=== PATIENT | female | born 1960 | race Caucasian/White ===

== ENCOUNTER → 2022-03-25 | Outpatient (CLI) | payer BC ==
[2022-03-25 18:05] LABS: HCT 45.1 % (37.2-46.3); HGB 13.8 g/dL (12.0-15.0); MCH 30.7 pg (27.0-32.0); MCHC 30.6 g/dL (32.0-37.0); MCV 100.2 fL (80.0-97.0); Mean Platelet Volume 9.7 fL (9.5-12.2); NRBC Per 100 WBC 0 /100 WBCS (0.0-0.0); Platelet Count 387 X 10*3/uL (140-440); WBC 11.67 X 10*3/uL (4.50-10.00)
[2022-03-25 18:22] LABS: African American GFR (CKD) 109.9 (60.0-200.0); Albumin 4.5 g/dL (3.8-4.9); Albumin/Globulin Ratio 1.41 (1.60-3.17); BUN/Creat Ratio 14.86 Ratio (12.00-20.00); Blood Urea Nitrogen 10.4 mg/dL (9.0-27.0); Globulin 3.2 g/dL (1.6-3.3); Non-African American GFR(CKD) 94.8 (60.0-200.0); Potassium 4.4 mmol/L (3.5-5.5); Total Bilirubin 0.3 mg/dL (0.30-1.20); Total Protein 7.7 g/dL (6.2-8.2)
[2022-03-25 20:02] LABS: Appearance,Urine Clear (Clear); Bilirubin,Urine Negative (Negative); Blood,Urine Negative (Negative); Color,Urine Yellow (Yellow); Ketones,Urine Negative (Negative); Nitrite,Urine Negative (Negative); PH, Urine 7.5 (5.0-8.0); Specific Gravity,Urine 1.005 (1.001-1.030); Urobilinogen,Urine 0.2 (0.2,1.0)
[2022-03-25 20:11] LABS: Bacteria,Urine None Seen /HPF (None Seen)
== END | disposition home or self-care (01) ==
LOC: LABPAT 12:50
PROVIDERS: ATTEND Orthopaedic Surgery
DX: Z01.818 Encounter for other preprocedural examination (principal); R94.31 Abnormal electrocardiogram [ECG] [EKG]
CPT/HCPCS: 80053; 81001; 85027; 87070; 93005

== ENCOUNTER 2022-04-01 07:28 | Day surgery (SDC) | payer BC ==
[~2022-04-01 07:28] MED LIST: ACETAMINOPHEN TAB 500 MG TAB PO PRN; GABAPENTIN 300 MG CAP PO PRN; MELOXICAM 7.5 MG TAB PO PRN; TRANEXAMIC ACID IN NACL,ISO-OS 1,000 MG in SALINE 1 100ML.BAG IVPB PRN
[2022-04-01] MEDS ORDERED: SCOPOLAMINE 1 MG/72 HR PATCH TRANSDERM ONE (07:44)
[2022-04-01] MEDS ORDERED: MIDAZOLAM 2 MG/2 ML VIAL IV PRN (07:44)
[2022-04-01] MEDS ORDERED: HYDROmorphone 0.5 MG/0.5 ML SYRINGE IVP PRN ×3 (07:44→09:32)
[2022-04-01] MEDS ORDERED: DEXAMETHASONE SOD PHOSPHATE 4 MG/ML 1 ML VIAL IV ONE (07:44)
[2022-04-01] MEDS ORDERED: ONDANSETRON 4 MG/2 ML VIAL IVP ONE (07:44)
[2022-04-01] MEDS: LACTATED RINGERS 1,000 ML IV SCH (08:25)
[2022-04-01] MEDS ORDERED: diphenhydrAMINE 50 MG/ML 1 ML VIAL ONE ×2 (08:38→09:39)
[2022-04-01] MEDS ORDERED: HYDROmorphone 1 MG/ML 1 ML SYRINGE IVP PRN (09:32)
[2022-04-01] MEDS ORDERED: hydrOXYzine pamoate 25 MG CAP PO PRN (09:32)
[2022-04-01] MEDS ORDERED: MAGNESIUM HYDROXIDE 2,400 MG/10 ML CUP PO PRN (09:32)
[2022-04-01] MEDS ORDERED: ONDANSETRON 4 MG/2 ML VIAL IVP PRN (09:32)
[2022-04-01] MEDS ORDERED: NALOXONE 0.4 MG/ML 1 ML VIAL IV PRN (09:32)
[2022-04-01] MEDS ORDERED: HYDROcodone/APAP 7.5-325MG 1 EACH TAB PO PRN (09:36)
[2022-04-01] MEDS ORDERED: MIDAZOLAM 2 MG/2 ML VIAL ONE (09:39)
[2022-04-01] MEDS ORDERED: KETAMINE 10 MG/ML 20 ML VIAL ONE (09:39)
[2022-04-01] MEDS ORDERED: PHENYLEPHRINE-0.9% NACL SYG 1,000 MCG/10 ML SYRINGE ONE (09:39)
[2022-04-01] MEDS ORDERED: PROPOFOL 10 MG/ML 20 ML VIAL IV ONE (09:39)
[2022-04-01] MEDS ORDERED: methylPREDNISolone SOD SUCCI 125 MG/2 ML VIAL ONE (09:39)
[2022-04-01] MEDS ORDERED: fentaNYL (PF) 50 MCG/ML 2 ML AMP ONE (09:39)
[2022-04-01] MEDS ORDERED: ROPIVACAINE 5 MG/ML 30 ML VIAL MISCELLANE ONE ×2 (09:40→10:37)
[2022-04-01] MEDS ORDERED: ceFAZolin 1,000 MG in SODIUM CHLORIDE 0.9% 1,000 ML IRRIGATION ONE (09:41)
--- NOTE | 2022-04-01 10:45 | P.OP ---
Date of Procedure: 04/01/22 Preoperative Diagnosis: Severe osteoarthritis right hip Postoperative Diagnosis: Severe osteoarthritis right hip Procedure(s) Performed: A total hip arthroplasty with a direct anterior approach Implants: [employer] Polarstem standard size 4 with a collar [employer] R3, 3 hole hemispherical acetabular shell, 48 mm [employer] Reflection 6.5 mm cancellus screw, 20 mm 2 [employer] R3, XLPE 20 acetabular liner [employer] Oxinium femoral head 32 m, -3 All components were press-fit. The articulation is Oxinium on polyethylene. Anesthesia: spinal Surgeon: Maximilian Luis Geropsychologist #1: Ирина Rodriguez Estimated Blood Loss (ml): 450 Pathology: other (Femoral head) Condition: stable Disposition: PACU Indications for Procedure: After failure of conservative treatment we discussed the surgical and nonsurgical treatment options at length. Patient wishes to proceed with a total hip arthroplasty with a direct anterior approach. Complications specific to this procedure were discussed at length, including but not limited to infection, leg length discrepancy, dislocation, nerve injury, and fracture. Covid-19 was also discussed at length with the patient, and they are aware of the current policies and procedures. The patient was given the option of delaying surgery, but they elect to proceed knowing these risks. Patient is aware of all these complications and informed consent was obtained Operative Findings: The operative findings are consistent with severe osteoarthritis of the right hip Description of Procedure: Patient was seen and evaluated in the preoperative area and the consent was reviewed. The operative site was marked with a skin marker. The patient was then brought to the operating room and given preoperative antibiotics intravenously. 1 g of Tranexamic acid was also given intravenously. A spinal anesthetic was administered by the anesthesia department. The patient was then placed on the Jefferson table with the bony prominences well-padded. The hip area was then prepped with a ChloraPrep solution and draped in the usual sterile fashion. A universal timeout was then performed, which confirmed the patient's name, surgical site, ALLERGIES, and procedure being performed on the consent. Next the incision site was located at 1 cm distal and 2 cm lateral to the anterior superior iliac spine. The skin and subcutaneous tissues were sharply incised. Incision was carefully dissected down to the fascia overlying the tensor fascia zaid muscle. This fascia was then incised in line with the incision. Care was taken to stay laterally in order to avoid injuring the lateral femoral cutaneous nerve. Next, using blunt finger dissection, the tensor fascia zaid muscle was dissected off its investing fascia. The muscle was then carefully retracted laterally with a cobra retractor over the lateral neck of the femur. Next, the circumflex vessels were identified and cauterized using the AquaMantis device. The anterior hip capsule was then exposed. The capsule was then opened and an inverted T fashion. Cobra retractors were then placed intracapsularly. The retractors were maintained intracapsular throughout the procedure. The proximal femur was then visualized. Fluoroscopic x-rays were then taken in order to evaluate the preoperative leg lengths. A small amount of traction was placed on the leg. The femoral neck was then osteotomized at the appropriate level above the lesser trochanter. A small wedge of bone was then removed from the remaining femoral head. Next, using a corkscrew the femoral head was removed from the acetabulum. On gross visual inspection, the femoral head had complete loss of articular cartilage and multiple periarticular osteophytes. The femoral head was then measured. Attention was then turned to the acetabulum. The acetabulum was exposed and any remaining labrum was excised. Sequential reaming of the acetabulum was performed using fluoroscopic guidance until there was a good bed of bleeding cancellus bone. When the appropriate size was reached, a trial was then placed. The position and fit of the trial was checked with fluoroscopy. The trial was then removed. Then, using fluoroscopic guidance, the final implant was impacted at 20 of anteversion and 40 of abduction, and fully seated in the acetabulum. 2 screws were then placed in the acetabulum. Again fluoroscopy was used to check position of the screws. Next, the liner was then impacted, with a 20 elevated liner located in the anterior superior quadrant. Component locking was confirmed. Attention was then directed to the femur. With the aid of the Jefferson table, the femur was externally rotated to approximately 130, extended, and adducted under the opposite leg. A side hook was then placed under the proximal femur, and the side hook elevator was used to elevate the proximal femur while releasing the capsule. Retractors were then placed. A capsular release was performed, as well as a release of the conjoined tendon, which afforded excellent visualization of the proximal femur. Next, a box osteotome was used to lateralize the proximal femur. A merchandiser retail representative was then used to locate the femoral canal. Sequential broaching was then performed with appropriate size which afforded excellent fixation in the proximal femur. A trial was then placed with appropriate head and neck, and the hip was gently reduced with the aid of the Jefferson table. Fluoroscopy was then used to check position of the components, as well as to evaluate the leg lengths and offset. The leg lengths and offset were measured as closely as possible to ensure stability of the hip. The hip was then gently dislocated and the trials were then removed. Final implants were then impacted and the hip was again reduced. Final fluoroscopic x-rays confirmed that the components were in anatomic position. The leg lengths and offset were measured and were found to coincide with the trial measurements. The hip was also taken through range of motion, and found to be stable. The hip was then copiously irrigated with antibiotic solution with pulsatile lavage. The hip was then irrigated with Irrisept solution. The soft tissues were then injected with a ropivacaine solution. A second dose of 1 g of Tranexamic acid was also given intravenously. The fascia was then closed with 2-0 strata fix suture. The subcutaneous tissue was closed with 3-0 Vicryl. The subcuticular tissue was closed with 3-0 strata fix suture. The skin was then closed with Exofin skin glue. After the glue and dried, and Optifoam silver impregnated dressing was applied. The patient was then transferred to the recovery room in stable condition. The human services assistant JOSSELYN Betancourt was required due to the complexity of surgery, and the need for skilled salesperson surgical appliances for positioning, draping, exposure, retraction, and closure of the wound.
[2022-04-01] MEDS ORDERED: LACTATED RINGERS 1,000 ML IV ONE (10:50)
--- NOTE | 2022-04-01 10:53 | XR ---
EXAMINATION TYPE: XR Hip Limited RT DATE OF EXAM: 04/01/2022 COMPARISON: NONE HISTORY: Postop TECHNIQUE: One view submitted. FINDINGS: There is postsurgical change in near anatomic alignment. There is soft tissue edema and emphysema. IMPRESSION: 1. Postoperative change. Appears in near-anatomic alignment.
--- NOTE | 2022-04-01 10:54 | FL ---
EXAMINATION TYPE: FL guidance operating room DATE OF EXAM: 04/01/2022 HISTORY: Fluoroscopy time 49 seconds of fluoroscopy provided. IMPRESSION: 1. Fluoroscopy time.
[2022-04-01] MEDS ORDERED: ALBUTEROL HFA INHALER INHALATION PRN (14:36)
--- NOTE | 2022-04-01 14:39 | P.CONS ---
History of Present Illness - Reason for Consult Consult date: 04/01/22 med management - History of Present Illness Patient is a 61-year-old female with history of hypothyroidism, asthma/COPD, osteoarthritis presenting for elective right hip total arthroplasty. [facility] physicians has been consulted for medical management. She currently denies any chest pain, shortness of breath, abdominal pain, urinary or bowel complaints. Patient seen and examined at bedside. Pertinent positives and negatives as discussed in HPI, a complete review of systems was performed and all other systems are negative. Vital signs reviewed General: nontoxic, no distress, appears at stated age Derm: warm, dry Head: atraumatic, normocephalic, symmetric Eyes: EOMI, no lid lag, anicteric sclera, pupils equal round reactive to light ENT: Nose and ears atraumatic Neck: No thyromegaly, supple Mouth: no lip lesion, mucus membranes moist Cardiovascular: S1S2 reg, no murmur, no edema Lungs: clear to auscultation bilateral, no rhonchi, no rales, no wheeze, no accessory muscle use, on 2 L nasal cannula Abdominal: soft, nontender to palpation, no guarding, no appreciable organomegaly Ext: no gross muscle atrophy, muscle strength muscle strength 5 out of 5 in all 4 extremities, no contractures Neuro: CN II-XII grossly intact Psych: Alert, oriented, appropriate affect Assessment/Plan: Severe right hip osteoarthritis Status post total right hip arthroplasty DVT prophylaxis and pain management per surgery PT/OT Chronic medical problems: COPD/asthma Hypothyroidism -Currently on 2 L postop, continue to wean -Continue home therapy Thank you for allowing us to participate in the care of this pleasant patient. Do not hesitate to contact us with questions. Someone can be reached from the [facility] hospitalist group all hours of the day at [phone] or via [employer]. Past Medical History Past Medical History: Asthma, Osteoarthritis (OA), Thyroid Disorder Additional Past Medical History / Comment(s): migraines, History of Any Multi-Drug Resistant Organisms: None Reported Past Surgical History: Cholecystectomy Additional Past Surgical History / Comment(s): partial thyroidectomy kidney stone basketing, Past Anesthesia/Blood Transfusion Reactions: Previous Problems w/ Anesthesia Smoking Status: Never smoker - Past Family History Mother Family Medical History: Coronary Artery Disease (CAD), Pneumonia Additional Family Medical History / Comment(s): pace maker in Father Family Medical History: Congestive Heart Failure (CHF), Thyroid Disorder Medications and Allergies Home Medications Medication Instructions Recorded Confirmed Type Albuterol Inhaler [Ventolin Hfa 1 - 2 puff INHALATION Q6H PRN 03/26/22 03/26/22 History Inhaler] FLUoxetine HCL 20 mg PO DAILY 03/26/22 03/26/22 History Ibuprofen 800 mg PO Q8H 03/26/22 03/26/22 History Levothyroxine Sodium 100 mcg PO DAILY 03/26/22 03/26/22 History Loratadine 10 mg PO DAILY 03/26/22 03/26/22 History Mometasone/Formoterol [Dulera 200 1 puff INHALATION DAILY 03/26/22 03/26/22 History Mcg-5 Mcg Inhaler] Montelukast [Singulair] 10 mg PO HS 03/26/22 03/26/22 History Multivitamins, Thera [Multivitamin 1 tab PO DAILY 03/26/22 03/26/22 History (formulary)] Omeprazole 20 mg PO DAILY 03/26/22 03/26/22 History SUMAtriptan succinate 50 mg PO DAILY PRN 03/26/22 03/26/22 History Vit C/Ascorb Sod/Multivit-Min 500 mg PO DAILY 03/26/22 03/26/22 History [Emergen-C 500 mg Chewable Tab] Aspirin 325 mg PO BID #60 tab 04/01/22 Rx HYDROcodone/APAP 7.5-325MG [[place] 1 - 2 tab PO Q6H PRN #32 tab 04/01/22 Rx 7.5-325] Sennosides [Senokot] 2 tab PO DAILY PRN #60 tablet 04/01/22 Rx Allergies Allergy/AdvReac Type Severity Reaction Status Date / Time Iodinated Contrast Media Allergy Rash/Hives Verified 04/01/22 07:52 ketorolac [From Toradol] Allergy Anaphylaxis Verified 04/01/22 07:52 latex Allergy Rash/Hives Verified 04/01/22 07:52 Penicillins Allergy Anaphylaxis Verified 04/01/22 07:52 povidone-iodine Allergy Rash/Hives Verified 04/01/22 07:52 [From Betadine] Physical Exam Vitals: Vital Signs Temp Pulse Resp BP Pulse Ox 04/01/22 12:13 91 16 118/62 100 04/01/22 11:45 87 16 119/67 98 04/01/22 11:30 88 16 118/67 99 04/01/22 11:18 89 16 104/57 99 04/01/22 11:04 89 16 98/54 95 04/01/22 08:25 97.1 F L 97 16 153/87 97 Intake and Output 03/31/22 04/01/22 04/01/22 22:59 06:59 14:59 Intake Total 1151 Output Total 450 Balance 701 Intake: IV 1151 Output: Estimated Blood Loss 450 Other: Weight 83.5 kg
[2022-04-01] MEDS: HYDROcodone/APAP 7.5-325MG 1 EACH TAB PO PRN ×2 (15:09→20:41)
[2022-04-01] MEDS: SODIUM CHLORIDE 0.9% 1,000 ML IV SCH (16:25)
[2022-04-01 17:55] VITALS: RESP 17
[2022-04-01] MEDS: ASPIRIN 325 MG TAB PO SCH (20:41)
[2022-04-01] MEDS ORDERED: SENNOSIDES-DOCUSATE SODIUM 1 EACH TAB PO SCH (21:00)
[2022-04-01] MEDS ORDERED: MONTELUKAST 10 MG TAB PO SCH (21:00)
[2022-04-02] MEDS: SODIUM CHLORIDE 0.9% 1,000 ML IV SCH (00:38)
[2022-04-02 02:15] VITALS: BP 110/65; PULSE 95; TEMP 97.7
[2022-04-02] MEDS: HYDROcodone/APAP 7.5-325MG 1 EACH TAB PO PRN ×2 (05:52→11:02)
[2022-04-02] MEDS ORDERED: LEVOTHYROXINE 100 MCG TAB PO SCH (06:30)
[2022-04-02] MEDS ORDERED: PANTOPRAZOLE 40 MG TABLET PO SCH (07:30)
[2022-04-02] MEDS ORDERED: SYMBICORT 160-4.5 MCG INHALER INHALATION SCH (08:00)
[2022-04-02 09:00] LABS: HCT 34.6 % (37.2-46.3); HGB 11.3 g/dL (12.0-15.0); MCH 31.5 pg (27.0-32.0); MCHC 32.7 g/dL (32.0-37.0); MCV 96.4 fL (80.0-97.0); Mean Platelet Volume 9.1 fL (9.5-12.2); NRBC Per 100 WBC 0 /100 WBCS (0.0-0.0); Platelet Count 378 X 10*3/uL (140-440); RBC 3.59 X 10*6/uL (4.10-5.20); RDW 13.2 % (11.5-14.5); WBC 22.99 X 10*3/uL (4.50-10.00)
[2022-04-02] MEDS ORDERED: VIT C PO SCH (09:00)
[2022-04-02] MEDS ORDERED: MULTIVITAMINS, THERA 1 EACH TAB PO SCH (09:00)
[2022-04-02] MEDS ORDERED: FLUoxetine HCL 20 MG CAP PO SCH (09:00)
[2022-04-02] MEDS ORDERED: LORATADINE 10 MG TAB PO SCH (09:00)
[2022-04-02] MEDS ORDERED: ASCORB SOD PO SCH (09:00)
[2022-04-02] MEDS ORDERED: MULTIVIT MIN PO SCH (09:00)
[2022-04-02] MEDS ORDERED: [UNRECOGNIZED DRUG - OTHER] PO SCH (09:00)
[2022-04-02] MEDS: ASPIRIN 325 MG TAB PO SCH (09:04)
[2022-04-02] MEDS: LACTATED RINGERS 1,000 ML IV SCH (09:05)
--- NOTE | 2022-04-02 09:52 | P.DS ---
Providers Expected date of discharge: 04/02/22 Attending physician: Maximilian Luis Consults: 04/01/22 09:32 Consult Physician Routine Consulting Provider: Kateryna James Consult Reason/Comments: medical management Do you want consulting provider notified?: Yes Primary care physician: Physician Nonstaff - Discharge Diagnosis(es) (1) Osteoarthritis of right hip Current Visit: Yes Status: Acute (2) S/P total hip arthroplasty Current Visit: Yes Status: Acute Hospital Course: This is a 61-year-old female with known history of degenerative arthritis of the right hip. The patient presented for evaluation as an outpatient. After discussion and consideration patient elects to proceed with total hip arthroplasty. The patient is seen preoperatively by Dr. Luis and medically cleared for surgery by their primary care physician. Patient is admitted to [facility] on 04/01/2022 for total hip arthroplasty. The procedure is performed without complication or sequelae. The patient is doing well postoperatively. Labs and vital signs are stable on day of discharge. On day of discharge patient's hip incision is healing well. There is minimal erythema. There is no drainage noted at this time. There is minimal soft tissue swelling to the hip and thigh. Patient has full foot and ankle motion without difficulty or pain. Calf is soft and nontender to palpation. Neurovascular status to the right lower extremity is intact. Patient is discharged home in good condition. Please see med rec for accurate list of home medications. Plan - Discharge Summary Discharge Rx Participant: Yes New Discharge Prescriptions: New HYDROcodone/APAP 7.5-325MG [[place] 7.5-325] 1 - 2 tab PO Q6H PRN #32 tab PRN Reason: Pain Sennosides [Senokot] 2 tab PO DAILY PRN #60 tablet PRN Reason: Constipation Aspirin 325 mg PO BID #60 tab No Action Albuterol Inhaler [Ventolin Hfa Inhaler] 1 - 2 puff INHALATION Q6H PRN PRN Reason: Shortness Of Breath Ibuprofen 800 mg PO Q8H SUMAtriptan succinate 50 mg PO DAILY PRN PRN Reason: Headache Multivitamins, Thera [Multivitamin (formulary)] 1 tab PO DAILY Mometasone/Formoterol [Dulera 200 Mcg-5 Mcg Inhaler] 1 puff INHALATION DAILY Montelukast [Singulair] 10 mg PO HS Vit C/Ascorb Sod/Multivit-Min [Emergen-C 500 mg Chewable Tab] 500 mg PO DAILY Omeprazole 20 mg PO DAILY Loratadine 10 mg PO DAILY Levothyroxine Sodium 100 mcg PO DAILY FLUoxetine HCL 20 mg PO DAILY Discharge Medication List Albuterol Inhaler [Ventolin Hfa Inhaler] 1 - 2 puff INHALATION Q6H PRN 03/26/22 [History] FLUoxetine HCL 20 mg PO DAILY 03/26/22 [History] Ibuprofen 800 mg PO Q8H 03/26/22 [History] Levothyroxine Sodium 100 mcg PO DAILY 03/26/22 [History] Loratadine 10 mg PO DAILY 03/26/22 [History] Mometasone/Formoterol [Dulera 200 Mcg-5 Mcg Inhaler] 1 puff INHALATION DAILY 03/26/22 [History] Montelukast [Singulair] 10 mg PO HS 03/26/22 [History] Multivitamins, Thera [Multivitamin (formulary)] 1 tab PO DAILY 03/26/22 [History] Omeprazole 20 mg PO DAILY 03/26/22 [History] SUMAtriptan succinate 50 mg PO DAILY PRN 03/26/22 [History] Vit C/Ascorb Sod/Multivit-Min [Emergen-C 500 mg Chewable Tab] 500 mg PO DAILY 03/26/22 [History] Aspirin 325 mg PO BID #60 tab 04/01/22 [Rx] HYDROcodone/APAP 7.5-325MG [[place] 7.5-325] 1 - 2 tab PO Q6H PRN #32 tab 04/01/22 [Rx] Sennosides [Senokot] 2 tab PO DAILY PRN #60 tablet 04/01/22 [Rx] Follow up Appointment(s)/Referral(s): Residential [facility] [NON-STAFF] - As Needed Maximilian Luis DO [Doctor of Osteopathic Medicine] - 2 Weeks Activity/Diet/Wound Care/Special Instructions: Weightbearing as tolerated with walker. Leave dressing intact. Dressing may be removed by home care nurse or by patient in 7 days. Then change dressing twice daily until follow up. May shower with initial dressing intact and after removal. If dressing become saturated, please remove. Please take aspirin 325mg twice daily for 30 days to prevent blood clots. Recommend use of compression stockings daily until follow up to help prevent swelling and blood clots. May remove at night before sleeping. Please follow-up with [facility] in 2 weeks and call with any questions or concerns, . Discharge Disposition: HOME WITH HOME HEALTH SERVICES
[2022-04-02 09:55] LABS: Basophils # (A) 0.04 X 10*3/uL (0.00-0.10); Basophils % (A) 0.2 %; Eosinophils # (A) 0.28 X 10*3/uL (0.04-0.35); Eosinophils % (A) 1.2 %; Immature Grans, Automated 0.4 %; Lymphocytes % (A) 4.8 %; Neutrophils # (A) 19.88 X 10*3/uL (1.80-7.70); Neutrophils % (A) 86.4 %
--- NOTE | 2022-04-02 11:44 | P.PN ---
Subjective Progress Note Date: 04/02/22 Principal diagnosis: med management Hospital Course: Patient is a 61-year-old female with history of hypothyroidism, asthma/COPD, osteoarthritis presenting for elective right hip total arthroplasty. [facility] for medical management. Subjective: Patient seen and examined at bedside. No acute events overnight. She is able to tolerate oral intake, denies any chest pain, shortness of breath, abdominal pain, urinary or bowel complaints. She claims that she did well with therapy this morning. Pertinent positives and negatives as discussed above, a complete review of systems was performed and all other systems are negative. Vitals Signs Reviewed. General: nontoxic, no distress, appears at stated age Derm: warm, dry, dressing clean, dry, intact Head: atraumatic, normocephalic, symmetric Eyes: EOMI, no lid lag, anicteric sclera, pupils equal round reactive to light ENT: Nose and ears atraumatic Neck: No thyromegaly, supple Mouth: no lip lesion, mucus membranes moist Cardiovascular: S1S2 reg, no murmur, no edema Lungs: clear to auscultation bilateral, no rhonchi, no rales, no wheeze, no accessory muscle use Abdominal: soft, nontender to palpation, no guarding, no appreciable organomegaly Ext: no gross muscle atrophy, muscle strength muscle strength 5 out of 5 in all 4 extremities, no contractures Neuro: CN II-XII grossly intact Psych: Alert, oriented, appropriate affect Assessment and Plan: Severe right hip osteoarthritis Status post total right hip arthroplasty -DVT prophylaxis and pain management per surgery -PT/OT Chronic medical problems: COPD/asthma Hypothyroidism -Continue home therapy Patient is medically optimized for discharge home. Thank you for allowing us to participate in the care of this pleasant patient. Do not hesitate to contact us with questions. Someone can be reached from the [facility] hospitalist group all hours of the day at [phone] or via [employer]. Objective - Vital Signs Vital signs: Vital Signs Temp 97.7 F 04/02/22 02:00 Pulse 95 04/02/22 02:00 Resp 17 04/02/22 02:00 BP 110/65 04/02/22 02:00 Pulse Ox 93 L 04/02/22 02:00 FiO2 Intake & Output 04/01/22 04/02/22 04/02/22 18:59 06:59 18:59 Intake Total 1151 Output Total 450 Balance 701 Weight 83.5 kg Intake: IV 1151 Output: Estimated Blood Loss 450 Other: Voiding Method Toilet Toilet # Voids 2 4 - Labs CBC & Chem 7: 04/02/22 05:59 Labs: Abnormal Lab Results - Last 24 Hours (Table) 04/02/22 Range/Units 05:59 WBC 22.99 H (4.50-10.00) X 10*3/uL RBC 3.59 L (4.10-5.20) X 10*6/uL Hgb 11.3 L (12.0-15.0) g/dL Hct 34.6 L (37.2-46.3) % MPV 9.1 L (9.5-12.2) fL Immature Gran # 0.09 H (0.00-0.04) X 10*3/uL Neutrophils # 19.88 H (1.80-7.70) X 10*3/uL Monocytes # 1.60 H (0.20-1.00) X 10*3/uL
== END 2022-04-02 11:51 | disposition home health service (06) ==
LOC: OR 07:28 → 4SSUR 11:06 → OR 04-02 11:51
PROVIDERS: ATTEND Orthopaedic Surgery
DX: M16.11 Unilateral primary osteoarthritis, right hip (principal); F32.A Depression, unspecified; J45.909 Unspecified asthma, uncomplicated; K21.9 Gastro-esophageal reflux disease without esophagitis; E21.3 Hyperparathyroidism, unspecified; Z83.3 Family history of diabetes mellitus; Z98.890 Other specified postprocedural states; Z90.89 Acquired absence of other organs; Z88.0 Allergy status to penicillin; Z91.040 Latex allergy status; Z91.041 Radiographic dye allergy status; Z88.6 Allergy status to analgesic agent; Z79.899 Other long term (current) drug therapy; Z79.1 Long term (current) use of non-steroidal anti-inflammatories (NSAID); Z79.890 Hormone replacement therapy; Z79.51 Long term (current) use of inhaled steroids; Z96.641 Presence of right artificial hip joint
CPT/HCPCS: 27130; 97116; 97161; 97535; 97166; 86900; 86901; 85025; 86850; 88300; 73501; C1776; J2250; J1200; J1100; J2930; J0690 ×3; J2405; J3010; J2795; J2370; J2704